=== PATIENT | male | born 1960 | race Caucasian/White ===

== ENCOUNTER 2016-08-17 13:19 | Emergency (ER) | payer MEDICAID ==
[2016-08-17] MEDS ORDERED: ONDANSETRON 4 MG/2 ML VIAL IVP ONE (15:18)
[2016-08-17] MEDS ORDERED: NS 1,000 ML IV ONE ×2 (15:18→15:54)
--- NOTE | 2016-08-17 15:25 | EDPHY ---
H & P Stated Complaint: N/V/D abdominal pain for a few days Time Seen by Provider: 08/17/16 15:13 HPI/ROS: CHIEF COMPLAINT: Nausea, vomiting, diarrhea HISTORY OF PRESENT ILLNESS: The patient presents to the ED with acute nausea, vomiting and diarrhea for the past 3-4 days. The patient denies significant abdominal pain. The patient denies antibiotic usage or travel outside the [place]. The patient denies significant alcohol consumption. The patient does have a history of chronic pain but reports he has been using his pain medications as chronically prescribed. The patient denies any fever, cough or congestion. The patient has helped some with the nonexertional mild intermittent left upper chest pain over the past several days. The patient reports that those symptoms have entirely resolved. He denies any pleuritic chest pain or shortness of breath. REVIEW OF SYSTEMS: A comprehensive 10 point review of systems is otherwise negative aside from elements mentioned in the history of present illness. Source: Patient Exam Limitations: No limitations - Personal History Current Tetanus/Diphtheria Vaccine: Yes Current Tetanus Diphtheria and Acellular Pertussis (TDAP): Yes Tetanus Vaccine Date: < 10 years - Medical/Surgical History Hx Asthma: No Hx Chronic Respiratory Disease: No Hx Diabetes: No Hx Cardiac Disease: Yes Hx Renal Disease: No Hx Cirrhosis: No Hx Alcoholism: Yes Hx HIV/AIDS: No Hx Splenectomy or Spleen Trauma: No Other PMH: ARTHRITIS, ETOH ABUSE, HTN, ORTHO SURG - Social History Smoking Status: Former smoker - Physical Exam Exam: General Appearance: Alert, obese male, no acute distress Eyes: Pupils equal and round no pallor or injection ENT, Mouth: Mucous membranes moist Respiratory: There are no retractions, lungs are clear to auscultation Cardiovascular: Regular rate and rhythm Gastrointestinal: Abdomen is soft and nontender, no masses, bowel sounds normal Neurological: A&O, normal motor function, normal sensory exam, normal cranial nerves Skin: Warm and dry, no rashes Musculoskeletal: Neck is supple nontender Extremities: symmetrical, full range of motion Constitutional: Initial Vital Signs Temperature (C) 36.4 C 08/17/16 13:38 Heart Rate 84 08/17/16 13:38 Respiratory Rate 18 08/17/16 13:38 Blood Pressure 143/112 H 08/17/16 13:38 O2 Sat (%) 94 08/17/16 13:38 O2 Delivery Mode Room Air Allergies/Adverse Reactions: No Known Allergies Allergy (Verified 08/17/16 13:38) Home Medications: Medication Instructions Recorded Lisinopril 20 mg PO DAILY #30 tablet 09/16/14 Meloxicam [Mobic 15 mg] 15 mg PO DAILY #30 tablet 09/16/14 traMADol [Ultram 50 mg (*)] 50 mg PO Q6 PRN #20 tab 09/16/14 Vicodin 5-300 mg Tablet 06/17/15 traMADol [Ultram 50 mg (*)] 50 mg PO Q4 PRN #30 tab 06/17/15 Lisinopril 08/17/16 Ondansetron Odt [Zofran Odt] 4 mg PO Q4PRN PRN #20 tab 08/17/16 morphINE 08/17/16 Medical Decision Making - Diagnostics EKG Interpretation: EKG: Complete interpretation has been separately recorded in the [employer] archive. Summary impression: Sinus rhythm ED Course/Re-evaluation: The patient presents to the ED for evaluation of several days of nausea vomiting and diarrhea. The patient denies any acute abdominal pain. I did find the patient's vital signs to be stable within normal limits. The patient had an IV established. He received 1 L of IV fluid in 4 mg of IV Zofran. The patient was noted to have mild hypokalemia which was replaced with oral potassium supplementation. The patient had serial examinations in the ED. He has no evidence of acute pancreatitis, cholecystitis, hepatitis, critical anemia or other worrisome findings on his physical exam. The patient was re-evaluated by myself at 6:00 p.m. and is feeling much better. His abdominal examination remains benign. The patient will be discharged home with a prescription for Zofran. He is advised to return to the ED for any abdominal pain, vomiting, worsening symptoms or other concerns. I recheck the patient's potassium is now 3.0. I have encouraged him to increase his electrolyte intake over the next several days. The patient will follow up with his primary care provider for a recheck within the next week. Differential Diagnosis: Differential diagnosis considered includes metabolic abnormality, pancreatitis, hepatitis, cholecystitis, dehydration, gastroenteritis - Data Points Laboratory Results: Laboratory Results 08/17/16 15:15 08/17/16 15:15 08/17/16 08/17/16 15:15 15:15 WBC 13.38 10^3/uL H 10^3/uL (3.80-9.50) RBC 5.86 10^6/uL 10^6/uL (4.40-6.38) Hgb 17.1 g/dL g/dL (13.7-17.5) Hct 47.6 % % (40.0-51.0) MCV 81.2 fL L fL (81.5-99.8) MCH 29.2 pg pg (27.9-34.1) MCHC 35.9 g/dL g/dL (32.4-36.7) RDW 12.5 % % (11.5-15.2) Plt Count 267 10^3/uL 10^3/uL (150-400) MPV 9.7 fL fL (8.7-11.7) Neut % (Auto) 67.2 % % (39.3-74.2) Lymph % (Auto) 23.9 % % (15.0-45.0) [place] % (Auto) 7.8 % % (4.5-13.0) Eos % (Auto) 0.1 % L % (0.6-7.6) Baso % (Auto) 0.4 % % (0.3-1.7) Nucleat RBC Rel Count 0.0 % % (0.0-0.2) Absolute Neuts (auto) 8.98 10^3/uL H 10^3/uL (1.70-6.50) Absolute Lymphs (auto) 3.20 10^3/uL H 10^3/uL (1.00-3.00) Absolute Monos (auto) 1.05 10^3/uL H 10^3/uL (0.30-0.80) Absolute Eos (auto) 0.01 10^3/uL L 10^3/uL (0.03-0.40) Absolute Basos (auto) 0.06 10^3/uL 10^3/uL (0.02-0.10) Absolute Nucleated RBC 0.00 10^3/uL 10^3/uL (0-0.01) Immature Gran % 0.6 % % (0.0-1.1) Immature Gran # 0.08 10^3/uL 10^3/uL (0.00-0.10) Sodium 138 mEq/L mEq/L (134-144) Potassium 2.8 mEq/L L mEq/L (3.5-5.2) Chloride 99 mEq/L mEq/L (97-110) Carbon Dioxide 23 mEq/l mEq/l (22-31) Anion Gap 16 mEq/L mEq/L (8-16) BUN 14 mg/dL mg/dL (7-23) Creatinine 0.9 mg/dL mg/dL (0.7-1.3) Estimated GFR > 60 Glucose 131 mg/dL H mg/dL (70-100) Calcium 9.2 mg/dL mg/dL (8.5-10.4) Total Bilirubin 1.3 mg/dL mg/dL (0.1-1.4) Conjugated Bilirubin 0.5 mg/dL mg/dL (0.0-0.5) Unconjugated Bilirubin 0.8 mg/dL mg/dL (0.0-1.1) AST 65 IU/L H IU/L (17-59) ALT 40 IU/L IU/L (21-72) Alkaline Phosphatase 140 IU/L H IU/L (38-126) Troponin I 0.026 ng/mL ng/mL (0-0.034) Total Protein 8.4 g/dL H g/dL (6.3-8.2) Albumin 4.6 g/dL g/dL (3.5-5.0) Lipase 321.0 IU/L H IU/L (23-300) Medications Given: Discontinued Medications Sodium Chloride (Ns) 1,000 mls @ 0 mls/hr IV ONCE ONE; Wide Open PRN Reason: Protocol Stop: 08/17/16 15:19 Last Admin: 08/17/16 15:19 Dose: 1,000 mls Sodium Chloride (Ns) 1,000 mls @ 0 mls/hr IV ONCE ONE; Wide Open PRN Reason: Protocol Stop: 08/17/16 15:55 Last Admin: 08/17/16 16:15 Dose: 1,000 mls Ondansetron HCl (Zofran) 4 mg IVP EDNOW ONE Stop: 08/17/16 15:19 Last Admin: 08/17/16 15:27 Dose: 4 mg Potassium Chloride (Klor-Con) 40 meq PO ONCE ONE Stop: 08/17/16 15:56 Last Admin: 08/17/16 16:15 Dose: 40 meq Departure - Departure Disposition: Home, Routine, Self-Care Clinical Impression: Gastroenteritis Condition: Good Instructions: Gastroenteritis (ED) Additional Instructions: 1. Zofran as needed for nausea and vomiting. 2. Please return to the ED for worsening symptoms, fever, any painful complaints or other concerns. 3. Please schedule a follow-up appointment with your primary care provider. You have also been given the number for the [facility] who would be happy to see you in follow-up. Referrals: [facility],. [Clinic] - As per Instructions Prescriptions: Ondansetron Odt [Zofran Odt] 4 mg PO Q4PRN PRN #20 tab PRN Reason: For Nausea
[2016-08-17 15:35] LABS: % IMMATURE GRANULYOCYTES 0.6 % (0.0-1.1); ABSOLUTE IMMATURE GRANULOCYTES 0.08 10^3/uL (0.00-0.10); ADD DIFF? NO; ADD MORPH? NO; ADD SCAN? NO; ATYPICAL LYMPHOCYTE FLAG 0 (0-99); FRAGMENT RBC FLAG 0 (0-99); HEMATOCRIT 47.6 % (40.0-51.0); HEMOGLOBIN 17.1 g/dL (13.7-17.5); LEFT SHIFT FLG 20 (0-99); LIPEMIA HEMOLYSIS FLAG 90 (0-99); MEAN CELL HEMOGLOBIN 29.2 pg (27.9-34.1); MEAN CELL HEMOGLOBIN CONCENTR. 35.9 g/dL (32.4-36.7); MEAN CELL VOLUME 81.2 fL (81.5-99.8); MEAN PLATELET VOLUME 9.7 fL (8.7-11.7); PLATELET CLUMPS FLAG 0 (0-99); PLATELET COUNT 267 10^3/uL (150-400); RED BLOOD CELL COUNT 5.86 10^6/uL (4.40-6.38); RED CELL DISTRIBUTION WIDTH 12.5 % (11.5-15.2)
--- NOTE | 2016-08-17 15:38 | CPEKG ---
Heart Rate: 56 RR Interval: 1071 P-R Interval: 176 QRSD Interval: 100 QT Interval: 552 QTC Interval: 533 P Riddle: 33 QRS Riddle: 28 T Wave Riddle: 26 EKG Severity - ABNORMAL ECG - EKG Impression: SINUS RHYTHM Electronically Signed By: Oral العلي 17-Aug-2016 16:10:43
[2016-08-17 15:52] LABS: ALANINE AMINOTRANSFERASE 40 IU/L (21-72); ALBUMIN 4.6 g/dL (3.5-5.0); ALKALINE PHOSPHATASE 140 IU/L (38-126); ANION GAP 16 mEq/L (8-16); ASPARTATE AMINOTRANSFERASE 65 IU/L (17-59); BILIRUBIN,TOTAL 1.3 mg/dL (0.1-1.4); BILIRUBIN-CONJUGATED 0.5 mg/dL (0.0-0.5); BILIRUBIN-UNCONJUGATED 0.8 mg/dL (0.0-1.1); CALCIUM 9.2 mg/dL (8.5-10.4); CARBON DIOXIDE 23 mEq/l (22-31); CHLORIDE 99 mEq/L (97-110); CREATININE 0.9 mg/dL (0.7-1.3); GLOMERULAR FILTRATION RATE > 60; GLUCOSE 131 mg/dL (70-100); POTASSIUM 2.8 mEq/L (3.5-5.2); SODIUM 138 mEq/L (134-144); TOTAL PROTEIN 8.4 g/dL (6.3-8.2)
[2016-08-17] MEDS ORDERED: POTASSIUM CL 20 MEQ TAB PO ONE (15:55)
[2016-08-17 16:02] LABS: TROPONIN I 0.026 ng/mL (0-0.034)
[2016-08-17 17:15] VITALS: RESP 16
[2016-08-17 18:33] VITALS: BP 131/89; PULSE 66; TEMP 98.1; O2SAT 96
== END 2016-08-17 18:33 | disposition home or self-care (01) ==
DX: K52.9 Noninfective gastroenteritis and colitis, unspecified (principal); I10 Essential (primary) hypertension; Z87.891 Personal history of nicotine dependence
CPT/HCPCS: 82947-QW; 96374; J2405